=== PATIENT | female | born 1995 | race American Indian/Alaskan Native ===

== ENCOUNTER 2019-09-21 05:05 | Inpatient (IN) | payer MEDICAID ==
[2019-09-21] MEDS ORDERED: BICITRA ORAL LIQD 30ML PO ONE (05:32)
[2019-09-21] MEDS ORDERED: FAMOTIDINE 20 MG/2 ML INJ IV ONE (05:32)
[2019-09-21] MEDS ORDERED: METOCLOPRAMIDE 10 MG/2 ML INJ IV ONE (05:32)
[2019-09-21 05:37] LABS: Basophils % (Auto) 0.3 % (0.0-1.8); Eosinophils % (Auto) 0.3 % (0.0-4.3); Hematocrit 31.5 % (30.3-42.9); Lymphocytes # (Auto) 1.4 K/mm3 (1.2-5.4); Lymphocytes % (Auto) 15.8 % (13.4-35.0); Mean Corpuscular HGB Conc 32 % (30-34); Mean Corpuscular Volume 74 fl (79-97); Monocytes # (Auto) 0.7 K/mm3 (0.0-0.8); Platelet Count 158 K/mm3 (140-440); Red Blood Count 4.23 M/mm3 (3.65-5.03); Red Cell Distribution Width 16.5 % (13.2-15.2)
[2019-09-21] MEDS: LACTATED RINGERS 1,000 ML IV SCH ×2 (05:45→06:46)
[2019-09-21] MEDS ORDERED: OXYTOCIN 20 UNIT/1000ML DRIP 20 UNITS/1,000 ML BAG IV SCH ×2 (06:00→15:03)
--- NOTE | 2019-09-21 06:48 | Anesthesia Day of Surgery ---
Anesthesia Day of Surgery - Day of Surgery Patient Examined: Yes Patient H&P Reviewed: Yes Patient is NPO: Yes Beta Blockers: No Cardiac Clearance: No Pulmonary Clearance: No Bill's Test: N/A
[2019-09-21] MEDS ORDERED: ONDANSETRON 4 MG/2 ML INJ IV PRN ×2 (06:49→15:03)
[2019-09-21] MEDS ORDERED: HYDROmorphone 1 MG/1 ML INJ IV PRN (06:49)
--- NOTE | 2019-09-21 06:49 | Anesthesia Consultation ---
Anesthesia Consult and Med Hx Date of service: 09/21/19 - Airway Anesthetic Teeth Evaluation: Good ROM Head & Neck: Adequate Mental/Hyoid Distance: Adequate Mallampati Class: Class III Intubation Access Assessment: Probably Good - Pulmonary Exam CTA: Yes - Cardiac Exam Cardiac Exam: RRR - Pre-Operative Health Status ASA Pre-Surgery Classification: ASA3 Proposed Anesthetic Plan: Spinal - Pulmonary Hx Smoking: No Hx Asthma: No Hx Respiratory Symptoms: No SOB: No COPD: No Home Oxygen Therapy: No Hx Pneumonia: No Hx Sleep Apnea: No - Cardiovascular System Hx Hypertension: No Hx Coronary Artery Disease: No Hx Heart Attack/AMI: No Hx Angina: No Hx Percutaneous Transluminal Coronary Angioplasty (PTCA): No Hx Cardia Arrhythmia: No Hx Pacemaker: No Hx Internal Defibrillator: No Hx Valvular Heart Disease: No Hx Heart Murmur: No Hx Peripheral Vascular Disease: No - Central Nervous System Hx Neuromuscular Disorder: No Hx Seizures: No CVA: No Hx Back Pain: Yes Hx Psychiatric Problems: No - Gastrointestinal Hx Ulcer: No Hx Gastroesophageal Reflux Disease: Yes - Endocrine Hx Renal Disease: No Hx End Stage Renal Disease: No Hx Cirrhosis: No Hx Liver Disease: No Hx Insulin Dependent Diabetes: No Hx Non-Insulin Dependent Diabetes: No Hx Thyroid Disease: No Hx Hypothyroidism: No Hx Hyperthyroidism: No - Hematic Hx Anemia: No Hx Sickle Cell Disease: No - Other Systems Hx Alcohol Use: No Hx Substance Use: No Hx Cancer: No Hx Obesity: Yes
--- NOTE | 2019-09-21 07:19 | History and Physical Report ---
History of Present Illness Date of examination: 09/21/19 Date of admission: 09/21/19 05:05 Chief complaint: malpresentation History of present illness: Pt is a 24 year old female GRAYSON 09/25/19 at 39w3d who presents for scheduled section secondary to malpresentation. She reports irregular contractions and denies vaginal bleeding or leakage of fluid. She has had limited care at [facility] since 17 wks with no care between 20 and 35 wks complicated by obesity and premutation for Fragile X Syndrome. She is GBS Negative. Past History Past Medical History: no pertinent history Past Surgical History: no surgical history Family/Genetic History: diabetes, hypertension Social history: no significant social history - Obstetrical History Expected Date of Delivery: 09/25/19 Actual Gestation: 39 Week(s) 3 Day(s) : 2 Para: 0 Hx # Term Pregnancies: 0 Number of Pregnancies: 0 Spontaneous Abortions: 1 Induced : 0 Medications and Allergies Allergies Allergy/AdvReac Type Severity Reaction Status Date / Time Penicillins Allergy Hives Verified 09/21/19 05:12 Home Medications Medication Instructions Recorded Confirmed Last Taken Type Ibuprofen [Motrin] 600 mg PO Q8H PRN #20 tablet 07/02/18 Unknown Rx medroxyPROGESTERone ACETATE 5 mg PO DAILY #5 tablet 07/02/18 Unknown Rx [Provera] Active Meds: Active Medications Hydromorphone HCl (Dilaudid) 0.5 mg IV Q5M PRN PRN Reason: BREAK >(7-10) Stop: 09/21/19 13:27 Oxytocin/Sodium Chloride (Pitocin/Ns 20 Unit/1000ml Drip) 20 units in 1,000 mls @ 0 mls/hr IV TITR ALFONSO Lactated Ringer's (Lactated Ringers) 1,000 mls @ 2,250 mls/hr IV PREOP ALFONSO Stop: 09/22/19 06:27 Last Admin: 09/21/19 06:46 Dose: 2,250 mls/hr Documented by: Clindamycin HCl (Cleocin 900 Mg/50 Ml) 900 mg in 50 mls @ 100 mls/hr IV PREOP NR; Protocol Stop: 09/21/19 23:45 Ondansetron HCl (Zofran) 4 mg IV Q8H PRN PRN Reason: Nausea And Vomiting Review of Systems All systems: negative - Vital Signs Vital signs: Vital Signs Temp Pulse Resp BP 98.1 F 104 H 18 133/86 09/21/19 05:44 09/21/19 05:44 09/21/19 05:44 09/21/19 05:44 Temp Pulse Resp BP Pulse Ox 98.1 F 104 H 18 133/86 09/21/19 05:44 09/21/19 05:46 09/21/19 05:44 09/21/19 05:46 - Physical Exam Breasts: Positive: deferred Abdomen: Positive: soft (obese, gravid ) Uterus: Positive: enlarged (gravid ) Extremities: Positive: normal - Obstetrical FHR: auscultation normal Results Result Diagrams: 09/21/19 05:20 Abnormal lab results 09/21/19 Range/Units 05:20 Hgb 10.0 L (10.1-14.3) gm/dl MCV 74 L (79-97) fl MCH 24 L (28-32) pg RDW 16.5 H (13.2-15.2) % [place] % (Auto) 8.0 H (0.0-7.3) % Seg Neutrophils % 75.6 H (40.0-70.0) % All other labs normal. Assessment and Plan A: IUP at 39w3d Breech presentation Obesity Premutation carrier for Fragile X Syndrome GBS Negative P: Confirm malpresentation via ultrasound Proceed with primary section and other indicated procedures
--- NOTE | 2019-09-21 08:06 | Ultrasound Report ---
ULTRASOUND OBSTETRIC LIMITED INDICATION / CLINICAL INFORMATION: Confirm malpresentation. TECHNIQUE: Transabdominal ultrasound imaging. COMPARISON: None available. FINDINGS: HEART RATE (beats per minute): 129 AMNIOTIC FLUID INDEX (cm) = not measured PRESENTATION: Breech. ADDITIONAL FINDINGS: None. IMPRESSION: Breech presentation Signer Name: Riley Narayan Jr, MD Signed: 09/21/2019 8:02 AM Workstation Name: [id number]
[2019-09-21] MEDS ORDERED: ONDANSETRON 4 MG/2 ML INJ ONE (11:32)
[2019-09-21] MEDS ORDERED: KETOROLAC 30 MG/1 ML INJ ONE (11:32)
[2019-09-21] MEDS ORDERED: BUPIVACAINE /DEX-WATER 0.75% (2 ML) AMPULE INFILTRATI ONE (11:32)
[2019-09-21] MEDS ORDERED: DEXMEDETOMIDINE 200 MCG/2 ML VIAL IV ONE (11:32)
[2019-09-21] MEDS ORDERED: WATER FOR IRRIG STERILE 1,500 ML BOTTLE IR ONE (12:00)
[2019-09-21] MEDS ORDERED: SODIUM CHLORIDE 0.9% IRR 1,500 ML BOTTLE IR ONE (12:00)
--- NOTE | 2019-09-21 12:56 | Procedure Note ---
OB Delivery Note - Delivery Date of Delivery: 09/21/19 Surgeon: PATT RODRIGUEZ Estimated blood loss: other (800 mL) - Section Preop diagnosis: breech Postop diagnosis: same section procedure: section, primary low transverse Disposition: PACU Narrative: Please see operative report. - A at 1 minute: 8 at 5 minutes: 9 Gender: Female (3059g (6lb 12 oz) @ 1216 pm)
--- NOTE | 2019-09-21 12:56 | Operative Report ---
Operative Report Operative Report: Date of procedure: September 21, 2019 Preoperative diagnosis: 1) IUP at 39w3d 2) Malpresentation 3) Obesity Postoperative diagnosis: Same Procedure: Primary low transverse section Surgeon: Camila Thomson M.D. Anesthesia: Regional Findings: 1) Viable female , Apgars 8 and 9, weight 3059g, (6 lb 12 oz) in complete breech presentation 2) Normal appearing uterus, ovaries and tubes Estimated blood loss: 800 mL IV fluids:900 mL Urine output: 300 mL, clear at the end of the procedure Drains: Andrade to gravity Specimens: None Complications: None. Counts correct x 3 Disposition: Stable to PACU Indication for procedure: Pt is a 24 year old -[place] female primigravida at 39w3d who presents for scheduled secondary to breech presentation. Operation in detail: After the risks, benefits, alternatives and complications were explained to the patient she gave informed consent for the procedure. She was subsequently taken to the operating room where regional anesthesia was noted to be adequate. She was subsequently placed in the dorsal supine position with leftward tilt and prepped and draped in a normal sterile fashion. heart tones were noted prior to incision. A timeout was performed. A Pfannenstiel skin incision was made with the knife and carried down to the layer of the fascia with the Bovie. The fascia was incised in the midline and the fascial incision was extended bilaterally with the Bovie. The fascial incision was then stretched. The rectus muscles were then in the midline and partially transected for adequate visualization. The peritoneum was then entered bluntly. The peritoneal incision was extended with good visualization of the bladder. The peritoneal incision was then stretched. An Refugio retractor was placed. The bladder blade was then placed. A transverse incision was made in the lower uterine segment with a knife and extended bilaterally with the bandage scissors. Amniotomy was performed with egress of clear fluid. The buttocks were delivered, followed by legs, torso, arms and finally head. bulb suctioned at delivery. Cord clamped and cut. handed to NICU staff in attendance. The placenta was then delivered manually. The uterus was then exteriorized and cleared of all clots and debris. The hysterotomy was then reapproximated with 0 Vicryl in a running locked fashion. A second layer of the same suture was used in imbricating fashion. An additional figure of eight of 2-0 vicryl was placed at the left side of the hysterotomy. The hysterotomy was inspected and hemostasis was noted. The uterus was placed back into the peritoneal cavity and the gutters were irrigated and cleared of all clots and debris. The hysterotomy was again inspected and noted to be hemostatic. Surgicel was placed over the hysterotomy. The Refugio retractor was removed. The peritoneum was reapproximated with 2-0 Vicryl in a running fashion incorporating the rectus muscles. Surgicel was placed over the rectus muscles. The fascia was reapproximated with 0 Vicryl in a running fashion. The subcutane ous tissue was reapproximated with 3-0 Vicryl in a running fashion. The skin was reapproximated with 4- Vicryl in a subcuticular fashion. The incision was then covered with steristrips and a pressure dressing. The procedure was then ended. The patient tolerated the procedure well and was taken to the PACU in stable condition. All instrument, lap, and needle counts were correct 3.
[2019-09-21] MEDS ORDERED: ACETAMINOPHEN 325 MG TAB PO PRN (15:03)
[2019-09-21] MEDS ORDERED: SIMETHICONE 80 MG CHEW TAB PO PRN (15:03)
[2019-09-21] MEDS ORDERED: LANOLIN/ZINC/DIMETHICONE (LANSINOH) 7 GM TP PRN (15:03)
[2019-09-21] MEDS ORDERED: NALOXONE 0.4 MG/1 ML INJ IV PRN (15:03)
[2019-09-21] MEDS ORDERED: WITCH HAZEL/ GLYCERIN PAD TP PRN (15:03)
[2019-09-21] MEDS ORDERED: D5W/LACTATED RINGERS 1,000 ML IV SCH (16:00)
[2019-09-21] MEDS: MAGNESIUM HYDROXIDE (MOM) ORAL LIQD UDC PO SCH ×2 (16:38→21:57)
[2019-09-21] MEDS: KETOROLAC 30 MG/1 ML INJ IV SCH ×2 (18:23→23:18)
[2019-09-21] MEDS: CLINDAMYCIN 600 MG/50 mL 600 MG/50 ML BAG IV SCH (21:57)
[2019-09-22] MEDS: IBUPROFEN 800 MG TAB PO SCH ×4 (01:04→23:16)
[2019-09-22] MEDS: MAGNESIUM HYDROXIDE (MOM) ORAL LIQD UDC PO SCH ×2 (03:12→10:14)
[2019-09-22] MEDS: CLINDAMYCIN 600 MG/50 mL 600 MG/50 ML BAG IV SCH (03:12)
[2019-09-22 04:07] LABS: Hematocrit 28.4 % (30.3-42.9)
[2019-09-22] MEDS: KETOROLAC 30 MG/1 ML INJ IV SCH (05:35)
[2019-09-22] MEDS ORDERED: TETANUS,DIPH,PERTUSS(ACELL) VACCINE 0.5 ML SYRINGE IM ONE (06:00)
[2019-09-22] MEDS: FERROUS SULFATE 325 MG TAB PO SCH (10:14)
--- NOTE | 2019-09-22 10:14 | Post Anesthesia Evaluation ---
- Post Anesthesia Evaluation Patient Participated: Yes Airway Patent: Yes Stable Respiratory Function: Yes Nausea/Vomiting: No Temp > 96.8F: Yes Pain Manageable: Yes Adequeate Hydration: Yes Anesthesia Complications: No Block Receding Appropriately: Yes Patient on Ventilator: No
[2019-09-22] MEDS: oxyCODONE /ACETAMINOPHEN 5-325MG TAB PO PRN ×2 (12:45→18:29)
[2019-09-22] MEDS ORDERED: MEASLES, MUMPS & RUBELLA 12,500 UNIT/0.5 ML VACCINE SUB-Q ONE (13:09)
--- NOTE | 2019-09-22 17:38 | Progress Note ---
Assessment and Plan A: POD#1 s/p primary section at term secondary to malpresentation, Anemia P: Routine care Subjective - Subjective Date of service: 09/22/19 Principal diagnosis: IUP at term delivered, obesity Interval history: Pt is a 24 year old female GRAYSON 09/25/19 at 39w3d who presents for scheduled section secondary to malpresentation. She reports irregular contractions and denies vaginal bleeding or leakage of fluid. She has had limited care at [facility] since 17 wks with no care between 20 and 35 wks complicated by obesity and premutation for Fragile X Syndrome. She is GBS Negative. Patient reports: appetite normal, voiding normally, pain well controlled, flatus, bowel movement, ambulating normally [place]: doing well Objective - Vital Signs Latest vital signs: Vital Signs Temp Pulse Resp BP BP Pulse Ox 09/22/19 16:09 98.0 F 71 20 105/53 94 09/22/19 12:45 20 09/22/19 11:58 97.8 F 83 20 105/55 94 09/22/19 10:14 20 09/22/19 07:56 97.9 F 79 20 106/61 92 09/22/19 05:12 98.0 F 89 20 108/63 94 09/21/19 23:51 97.9 F 95 H 20 109/54 97 09/21/19 21:06 97.8 F 87 18 113/63 98 Intake and Output 09/22/19 09/22/19 09/22/19 06:59 14:59 22:59 Intake Total 360 Output Total 1200 400 Balance -1200 -40 Intake: Oral 360 Output: Urine 1200 400 Indwelling Catheter 900 Void 300 400 Other: Total, Intake Amount 240 Total, Output Amount 300 400 # Voids Void 1 1 - Exam Breasts: Present: deferred Cardiovascular: Present: Regular rate Lungs: Present: Clear to auscultation Abdomen: Present: soft (obese ) Uterus: Present: fundal height at umbilicus Extremities: Present: normal - Labs Labs: Abnormal lab results 09/22/19 Range/Units 03:46 Hgb 9.0 L (10.1-14.3) gm/dl Hct 28.4 L (30.3-42.9) %
[2019-09-23] MEDS: IBUPROFEN 800 MG TAB PO SCH ×4 (06:04→23:24)
--- NOTE | 2019-09-23 07:55 | Progress Note ---
Assessment and Plan A: POD2 s/p primary LTCS Vital signs stable Acute on chronic anemia due to blood loss and Bottle feeding P: Routine care Iron supplementation Anticipate d/c to home on POD3 Subjective - Subjective Date of service: 09/23/19 Principal diagnosis: IUP at term delivered Interval history: POD2 s/p primary LTCS for breech Patient reports: appetite normal, voiding normally, pain well controlled, flatus, ambulating normally [place]: doing well, bottle feeding (due to maternal preference) Objective - Vital Signs Latest vital signs: Vital Signs Temp Pulse Resp BP BP Pulse Ox 09/23/19 00:05 97.6 F 90 20 126/70 97 09/22/19 18:29 20 09/22/19 16:09 98.0 F 71 20 105/53 94 09/22/19 12:45 20 09/22/19 11:58 97.8 F 83 20 105/55 94 09/22/19 10:14 20 09/22/19 07:56 97.9 F 79 20 106/61 92 Intake and Output 09/22/19 09/22/19 09/23/19 15:59 23:59 07:59 Intake Total 360 480 480 Output Total 400 Balance -40 480 480 Intake: Oral 360 480 480 Output: Urine 400 Void 400 Other: Total, Intake Amount 240 240 240 Total, Output Amount 400 # Voids Void 1 1 1 # Bowel Movements 1 - Exam Lungs: Present: Normal air movement Abdomen: Present: soft Uterus: Present: firm, fundal height below umbilicus. Absent: bogginess Extremities: Present: normal Incision: Present: dressed
[2019-09-23] MEDS: FERROUS SULFATE 325 MG TAB PO SCH (09:36)
[2019-09-23] MEDS: oxyCODONE /ACETAMINOPHEN 5-325MG TAB PO PRN (13:05)
[2019-09-24] MEDS: IBUPROFEN 800 MG TAB PO SCH ×2 (05:23→13:40)
--- NOTE | 2019-09-24 08:17 | Progress Note ---
Assessment and Plan A: POD3 s/p primary LTCS Vital signs stable Acute on chronic anemia due to blood loss and Bottle feeding P: Routine care Iron supplementation D/c to home today Subjective - Subjective Date of service: 09/24/19 Principal diagnosis: IUP at term delivered Interval history: POD3 s/p primary LTCS for breech Patient reports: appetite normal, voiding normally, pain well controlled, flatus, bowel movement, ambulating normally [place]: doing well, bottle feeding Objective - Vital Signs Latest vital signs: Vital Signs Temp Pulse Resp BP BP Pulse Ox 09/24/19 00:00 98.0 F 87 20 112/73 99 09/23/19 12:01 98.0 F 85 18 118/63 97 09/23/19 08:17 98.0 F 86 18 122/63 96 Intake and Output 09/23/19 09/24/19 09/24/19 23:59 07:59 15:59 Intake Total 240 Balance 240 Intake: Oral 240 Other: Total, Intake Amount 240 # Voids Void 2 - Exam Lungs: Present: Normal air movement Abdomen: Present: soft. Absent: distention, tenderness Uterus: Present: firm, fundal height below umbilicus. Absent: bogginess Extremities: Present: normal Incision: Present: normal, dry, intact
--- NOTE | 2019-09-24 08:20 | Discharge Summary ---
Providers - Providers Date of Admission: 09/21/19 05:05 Date of discharge: 09/24/19 Attending physician: SHANIQUE BOOTHE Primary care physician: SHANIQUE BOOTHE Hospitalization Reason for admission: section, IUP at term Delivery: Procedure: primary low transverse (for breech presentation) Incision: normal, dry, intact Other procedures: none complications: none baby: female Hospital course: Uneventful Condition at discharge: Good Disposition: DC-01 TO HOME OR SELFCARE Plan - Discharge Medications Prescriptions: Ferrous Sulfate [Feosol 325 MG tab] 325 mg PO BID #60 tablet Ferrous Sulfate [Ferrous Sulfate 324 MG] 324 mg PO BID #60 tablet.dr Ibuprofen [Motrin] 600 mg PO Q6H PRN #60 tablet PRN Reason: Pain Ibuprofen [Motrin] 800 mg PO Q8HR PRN #30 tablet PRN Reason: Pain, Moderate (4-6) oxyCODONE /ACETAMINOPHEN [Percocet 5/325] 1 tab PO Q6HR PRN #40 tablet PRN Reason: Pain oxyCODONE /ACETAMINOPHEN [Percocet 5/325] 1 tab PO Q6HR PRN #30 tablet PRN Reason: Pain oxyCODONE /ACETAMINOPHEN [Percocet 5/325] 1 tab PO Q6HR PRN #30 tablet PRN Reason: Pain - Provider Discharge Summary Activity: routine, no sex for 6 weeks, no heavy lifting 4 weeks, no strenuous exercise Diet: routine Instructions: routine Additional instructions: [] Smoking cessation referral if applicable(refer to patient education folder for contact #) [] Refer to [facility]'s [facility] Booklet Call your doctor immediately for: * Fever > 100.5 * Heavy vaginal bleeding ( >1 pad per hour) * Severe persistent headache * Shortness of breath * Reddened, hot, painful area to leg or breast * Drainage or odor from incision. * Keep incision clean and dry at all times and follow doctor's instructions regarding bathing/showering - Follow up plan Follow up: MARISEL AMARO CNM [Advanced Practice Nurse] - 14 Days (Please call [facility] to schedule appointment.)
[2019-09-24 09:11] VITALS: BP 114/65
[2019-09-24] MEDS: oxyCODONE /ACETAMINOPHEN 5-325MG TAB PO PRN (09:45)
[2019-09-24] MEDS: FERROUS SULFATE 325 MG TAB PO SCH (09:46)
== END 2019-09-24 13:40 | disposition home or self-care (01) | DRG 765 ==
LOC: APU 05:05 → OB 14:44
PROVIDERS: ADMIT Obstetrics & Gynecology; ATTEND Obstetrics & Gynecology
PROC: 10D00Z1 Extraction of Products of Conception, Low, Open Approach (ICD-10-PCS; principal; 2019-09-21)
PROC: 3E0234Z Introduction of Serum, Toxoid and Vaccine into Muscle, Percutaneous Approach (ICD-10-PCS; 2019-09-22)
PROC: 3E0134Z Introduction of Serum, Toxoid and Vaccine into Subcutaneous Tissue, Percutaneous Approach (ICD-10-PCS; 2019-09-22)
DX: O32.1XX0 Maternal care for breech presentation, not applicable or unspecified (principal); D62 Acute posthemorrhagic anemia; O99.02 Anemia complicating childbirth; O99.214 Obesity complicating childbirth; E66.9 Obesity, unspecified; O99.62 Diseases of the digestive system complicating childbirth; K21.9 Gastro-esophageal reflux disease without esophagitis; Z82.49 Family history of ischemic heart disease and other diseases of the circulatory system; Z3A.39 39 weeks gestation of pregnancy; Z37.0 Single live birth; Z83.3 Family history of diabetes mellitus; Z88.0 Allergy status to penicillin; Z79.899 Other long term (current) drug therapy; Z23 Encounter for immunization
CPT/HCPCS: 36415; 76815; 85014; 85018; 85025; 86850; 86900; 86901; G0378; J1885; J2405; J2590; J2765; J3490; J7120; J7121